=== PATIENT | male | born 1960 | race Caucasian/White ===

== ENCOUNTER 2016-08-22 07:11 | Outpatient (CLI) | payer OTHER ==
[2016-08-22 07:54] LABS: eGFR (African) > 60; eGFR (Non-African) > 60
== END 2016-08-22 07:12 ==
LOC: LAB 07:11
PROVIDERS: ATTEND Physician Assistant
DX: I10 Essential (primary) hypertension (principal); E78.00 Pure hypercholesterolemia, unspecified
CPT/HCPCS: 36415; 80053; 80061

== ENCOUNTER 2017-09-29 09:11 | Outpatient (CLI) | payer OTHER ==
[2017-09-29 09:51] LABS: eGFR (African) > 60; eGFR (Non-African) > 60
== END 2017-09-29 09:12 ==
LOC: LAB 09:11
PROVIDERS: ATTEND Physician Assistant
DX: I10 Essential (primary) hypertension (principal); E78.00 Pure hypercholesterolemia, unspecified
CPT/HCPCS: 36415; 80053; 80061

== ENCOUNTER 2017-10-26 10:16 | Day surgery (SDC) | payer OTHER ==
--- NOTE | 2017-10-26 14:20 | GI Report ---
REFERRING PHYSICIAN: HELENE Chahal RACK PULLER: Mathieu Baldwin MD PROCEDURE MEDICATION: Propofol as per anesthesia. HISTORY: This is a 56-year-old man who is referred for a screening colonoscopy. He denies change in bowel habits or blood in the stool. He is on a statin for hyperlipidemia and is on medicine for his blood pressure. He does take omeprazole before breakfast for reflux. He is 6 feet 2 inches and his weight is 129 kilograms. He carries some of that centrally. PROCEDURE PERFORMED: Colonoscopy and polypectomy. PROCEDURE: An Olympus video colonoscope was advanced to the rectum. A few diverticula. A slightly atonic redundant colon to the cecum. The appendiceal orifice was normal. Terminal ileum was normal. On slow withdrawal, the cecum and ascending colon were normal. In the mid-transverse colon, patient has a 3 mm flat polyp that was cold biopsy removed. In the sigmoid colon, there were 3 polyps removed. The larger one was about 0.5 cm in size and sessile which we removed with electrocautery. Then there were 2 polyps that were 2 to 3 mm in size and flat that we just cold biopsied removed. Again, some diverticula in the sigmoid colon. Retroflexion of the rectum was normal. Patient tolerated the procedure well. FINDINGS: 1. Four polyps removed, 3 in the sigmoid and 1 in the transverse colon. 2. A few diverticula. RECOMMENDATIONS: 1. Would increase fiber in the diet. 2. More fruits, vegetables, whole-grain products. 3. Pending the pathology of the polyps, consider re-looking at his colon in 5 years. HELENE Chahal [facility]ITALTeodoro
== END 2017-10-26 10:17 ==
LOC: OPSURG 10:16
PROVIDERS: ATTEND Internal Medicine Gastroenterology
DX: Z12.11 Encounter for screening for malignant neoplasm of colon (principal); K63.5 Polyp of colon; D12.5 Benign neoplasm of sigmoid colon; D12.3 Benign neoplasm of transverse colon
CPT/HCPCS: J2001; J2704; J7120; 45385; S1016

== ENCOUNTER 2018-11-29 07:10 | Outpatient (CLI) | payer OTHER ==
[2018-12-20 12:50] LABS: eGFR (Non-African) > 60
[2018-12-20 12:51] LABS: HDL 63 mg/dL (>40)
== END 2018-11-29 07:13 ==
LOC: LAB 07:10
PROVIDERS: ATTEND Family Medicine
DX: E78.2 Mixed hyperlipidemia (principal)
CPT/HCPCS: 36415; 80053; 80061